=== PATIENT | male | born 1990 | race Caucasian/White ===

== ENCOUNTER 2025-01-20 06:19 | Day surgery (SDC) | payer BC, SELFPAY | END 2025-01-20 11:38 | disposition home or self-care (01) | LOC: GI 06:19 | PROVIDERS: ATTENDING PHYSICIAN Internal Medicine Gastroenterology | DX: R13.14 Dysphagia, pharyngoesophageal phase (principal); R12 Heartburn; K21.00 Gastro-esophageal reflux disease with esophagitis, without bleeding; K22.89 Other specified disease of esophagus; K20.0 Eosinophilic esophagitis | CPT/HCPCS: 43239; 88305 ==